=== PATIENT | male | born 1955 | race Caucasian/White ===

== ENCOUNTER 2018-01-17 06:26 | Observation (INO) | payer BC, OTHER ==
[2018-01-17 07:49] LABS: BASO # 0.1 10^3/uL (0.0-0.2); BASO % 0.6 % (0.0-1.0); EOS # 0.4 10^3/uL (0.0-0.50); EOS % 2.9 % (0.0-3.0); HEMATOCRIT 45.8 % (42.0-52.0); HEMOGLOBIN 15.6 g/dl (13.5-17.5); IMMATURE GRANULOCYTE % 0.4 % (0-3.0); LYMPH # 2.8 10^3/uL (1.5-4.5); LYMPH % 22.7 % (24.0-44.0); MEAN CORPUSCULAR HEMOGLOBIN 29.2 pg (27.0-33.0); MEAN CORPUSCULAR HGB CONC 34.1 g/dl (32.0-36.5); MEAN CORPUSCULAR VOLUME 85.6 fl (80.0-96.0); MONO # 0.9 10^3/uL (0.0-0.8); MONO % 7.3 % (0.0-5.0); NEUTROPHILS % 66.1 % (36.0-66.0); PLATELET COUNT, AUTOMATED 308 10^3/uL (150-450); RED BLOOD COUNT 5.35 10^6/uL (4.30-6.10); RED CELL DISTRIBUTION WIDTH 13.3 % (11.5-14.5); WHITE BLOOD COUNT 12.1 10^3/uL (4.0-10.0)
[2018-01-17] MEDS: GLUCAGON FOR INJ 1 MG VIAL (J1610) IV (07:50)
[2018-01-17 08:11] LABS: ANION GAP 8 MEQ/L (8-16); BLOOD UREA NITROGEN 18 MG/DL (7-18); CALCIUM LEVEL 9.4 MG/DL (8.8-10.2); CARBON DIOXIDE LEVEL 28 MEQ/L (21-32); CHLORIDE LEVEL 106 MEQ/L (98-107); CREATININE FOR GFR 1.25 MG/DL (0.70-1.30); GLOMERULAR FILTRATION RATE > 60.0 (>49); GLUCOSE, FASTING 122 MG/DL (70-100); POTASSIUM SERUM 4.1 MEQ/L (3.5-5.1); SODIUM LEVEL 142 MEQ/L (136-145)
[2018-01-17] MEDS: GI COCKTAIL 50ML BTL(HYOSCYAMINE/MAALOX/LIDOCAINE VISCOUS)(1:3:1) PO (11:11)
[2018-01-17] MEDS: NS 1,000 ML IV (12:14)
[2018-01-17] MEDS ORDERED: LIDOCAINE 2% INJ 100 MG/5 ML SDV (FOR ANES.) As Ordered (14:20)
[2018-01-17] MEDS ORDERED: PROPOFOL 200 MG/20 ML VIAL As Ordered (14:20)
[2018-01-17] MEDS ORDERED: fentaNYL 100 MCG/2 ML INJECTION (J3010) As Ordered ×2 (14:20→17:31)
[2018-01-17] MEDS ORDERED: MIDAZOLAM INJ 2 MG/2 ML VIAL (J2250) As Ordered (14:20)
[2018-01-17] MEDS ORDERED: SUCCINYLCHOLINE 100 MG/5 ML SYRINGE (J0330) As Ordered (14:20)
[2018-01-17] MEDS ORDERED: ROCURONIUM BROMIDE 50 MG/5 ML VIAL As Ordered (14:21)
[2018-01-17] MEDS ORDERED: dexameTHASONE 4 MG/ML 1ML VIAL (J1100) As Ordered (14:21)
[2018-01-17] MEDS ORDERED: ONDANSETRON 4MG/2ML VIAL (J2405) As Ordered (14:21)
[2018-01-17] MEDS ORDERED: ePHEDrine SULFATE 25 MG/5 ML(5MG/ML) SYRINGE As Ordered (16:19)
[2018-01-17] MEDS ORDERED: fentaNYL 100 MCG/2 ML INJECTION (J3010) IV (19:00)
[2018-01-17] MEDS ORDERED: LR 1,000 ML IV (19:00)
[2018-01-17] MEDS ORDERED: ONDANSETRON 4MG/2ML VIAL (J2405) IV (19:00)
[2018-01-17] MEDS ORDERED: PERCOCET 5MG/325MG TAB PO (19:00)
[2018-01-17] MEDS: PANTOPRAZOLE 40MG TAB (PROTONIX) PO (19:21)
[2018-01-17] MEDS ORDERED: PANTOPRAZOLE 40MG TAB (PROTONIX) PO (21:00)
== END 2018-01-17 20:00 | disposition home or self-care (01) ==
LOC: M ED INP 20:00 → M ED 06:26 → M ED INP 15:00
DX: T18.128A Food in esophagus causing other injury, initial encounter (principal); K20.9 Esophagitis, unspecified; K25.9 Gastric ulcer, unspecified as acute or chronic, without hemorrhage or perforation; Z88.7 Allergy status to serum and vaccine; Z79.899 Other long term (current) drug therapy; Y92.001 Dining room of unspecified non-institutional (private) residence as the place of occurrence of the external cause
CPT/HCPCS: 43247

== ENCOUNTER 2021-04-03 14:20 | Emergency (ER) | payer OTHER, BC ==
[~2021-04-03] VITALS: Ht 167.6 cm; Wt 69.4 kg
[2021-04-03 14:20] VITALS: BP 166/93
[~2021-04-03 14:20] MED LIST: PANT40TA29 PO
[2021-04-03] MEDS ORDERED: LIDOCAINE 2% MDV 20ML VIAL SC ONE (19:20)
[2021-04-03] MEDS ORDERED: CEPH500C PO (19:55)
[2021-04-03] MEDS ORDERED: CEPHALEXIN 500 MG CAP PO ONE (19:55)
== END 2021-04-03 20:35 | disposition home or self-care (01) ==
LOC: M ED 14:20
DX: S61.012A Laceration without foreign body of left thumb without damage to nail, initial encounter (principal); W23.0XXA Caught, crushed, jammed, or pinched between moving objects, initial encounter; Y92.89 Other specified places as the place of occurrence of the external cause; Y93.89 Activity, other specified; Y99.1 Military activity; Z88.7 Allergy status to serum and vaccine; Z88.8 Allergy status to other drugs, medicaments and biological substances

== ENCOUNTER 2021-04-11 23:12 | Emergency (ER) | payer OTHER, BC ==
[~2021-04-11] VITALS: Ht 167.6 cm; Wt 68.7 kg
[~2021-04-11 23:12] MED LIST changes: +CEPH500C PO
[2021-04-12 05:59] VITALS: BP 138/78
== END 2021-04-12 06:00 | disposition home or self-care (01) ==
LOC: M ED 23:12
DX: Z48.02 Encounter for removal of sutures (principal)

== ENCOUNTER → 2022-02-03 | Outpatient (CLI) | payer BC, SELFPAY | LOC: M WUC 09:24 | PROVIDERS: ATTEND Family Medicine Adult Medicine | DX: R76.11 Nonspecific reaction to tuberculin skin test without active tuberculosis (principal) ==

== ENCOUNTER 2025-02-16 21:18 | Emergency (ER) | payer BC ==
[~2025-02-16] VITALS: Ht 167.6 cm; Wt 70.6 kg
[2025-02-17] MEDS ORDERED: GLUCAGON INJ 1 MG VIAL IV STA (03:49)
[2025-02-17 04:41] VITALS: BP 158/97; TEMP 98; O2SAT 98
== END 2025-02-17 04:58 | disposition home or self-care (01) ==
LOC: M ED 21:18
DX: T18.128A Food in esophagus causing other injury, initial encounter (principal); K20.90 Esophagitis, unspecified without bleeding; Y92.009 Unspecified place in unspecified non-institutional (private) residence as the place of occurrence of the external cause; Y93.89 Activity, other specified